=== PATIENT | male | born 1945 | race Caucasian/White ===

== ENCOUNTER → 2019-10-04 | Outpatient (CLI) | payer BC ==
--- NOTE | 2019-10-04 10:10 | Diagnostic Imaging Report ---
EXAM: Right upper quadrant abdominal ultrasound INDICATION: Liver cirrhosis COMPARISON: None. TECHNIQUE: Transverse and longitudinal images of the right upper quadrant abdomen were obtained FINDINGS: Liver: Size: 14.4 cm in the right midclavicular line, normal Appearance: Normal echogenicity, smooth contour Mass: No focal masses Gallbladder: No gallbladder distension, pericholecystic fluid, wall thickening, stone, or reported sonographic Fish's sign. Gallbladder wall measures 2 mm. Bile Ducts: Intrahepatic Ducts: No dilatation Extrahepatic Ducts: Common bile duct measures 5 mm Pancreas: Not well visualized due to overlying bowel gas Kidney: The right kidney measures 10.3 cm without evidence of hydronephrosis or stone. Vessels: Aorta: Visualized portions are normal Inferior Vena Cava: Visualized portions are normal Main Portal Vein: 0.9 cm, normal size with hepatopetal flow. Free Fluid: No ascites or pleural effusion IMPRESSION: Unremarkable right upper quadrant ultrasound. Signed by: Sanaz Gatica MD on 10/04/2019 10:07 AM
== END ==
LOC: US 07:33
PROVIDERS: ATTEND Internal Medicine
DX: K74.60 Unspecified cirrhosis of liver (principal)
CPT/HCPCS: 76705

== ENCOUNTER 2025-01-23 15:03 | Emergency (ER) | payer BC, MEDICARE ==
[~2025-01-23] VITALS: Ht 170.2 cm; Wt 53.5 kg
[~2025-01-23 15:03] MED LIST: ATORVASTATIN CA10 MG PO; FLOMAX0.4 MG PO; GABAPENTIN600 MG PO; LEVOTHYROXINE75 MCG PO; LISINOPRIL10 MG PO; TEMAZEPAM15 MG PO; ULTRAM 50MG50 MG PO
[2025-01-23] MEDS: ALBUTEROL/IPRATROPIUM 3 ML NEB NEB ONE (16:47)
[2025-01-23 17:12] LABS: CORONAVIRUS COVID-19 AG NEGATIVE (NEGATIVE)
[2025-01-23 17:57] VITALS: PULSE 75; RESP 22; TEMP 97.6
[2025-01-23] MEDS ORDERED: PREDNISONE50 MG PO (17:57)
[2025-01-23 17:58] VITALS: BP 98/59; PULSE 75; RESP 22; O2SAT 98
== END 2025-01-23 18:03 | disposition home or self-care (01) ==
LOC: ER 15:56
DX: R06.02 Shortness of breath (principal); J44.1 Chronic obstructive pulmonary disease with (acute) exacerbation; E03.9 Hypothyroidism, unspecified; G62.9 Polyneuropathy, unspecified; F32.A Depression, unspecified; G47.00 Insomnia, unspecified; Z11.52 Encounter for screening for COVID-19
CPT/HCPCS: 71045; 99284